=== PATIENT | male | born 1975 | race Asian ===

== ENCOUNTER 2019-08-14 02:05 | Emergency (ER) | payer OTHER ==
[~2019-08-14] VITALS: Ht 167.6 cm; Wt 70.3 kg
[2019-08-14 02:10] VITALS: Ht 167.6 cm; Wt 70.3 kg
[2019-08-14 03:47] LABS: BASOPHIL % 0.3 % (0-2); PLATELET COUNT 252 x10^3mcL (130-400); RED CELL DISTRIBUTION WIDTH 12.4 % (11.5-14.5)
[2019-08-14 04:14] LABS: CARBON DIOXIDE 28.1 mmol/L (21-32); CHLORIDE SERUM 105 mmol/L (98-107); GLUCOSE SERUM 107 mg/dL (74-106); SODIUM SERUM 143 mmol/L (136-145)
[2019-08-14 04:15] LABS: ALBUMIN 4.1 g/dL (3.4-5.0); ALKALINE PHOSPHATASE 96 U/L (46-116); ALT/SGPT 42 U/L (16-63); AMYLASE 61 U/L (25-115); AST/SGOT 8 U/L (15-37); BILIRUBIN TOTAL 0.35 mg/dL (0.20-1.00); CALCIUM 8.6 mg/dL (8.5-10.1); CREATININE SERUM 1.1 mg/dL (0.7-1.3); GFR1 > 60 mL/min; LIPASE 124 IU/L (73-393); TOTAL PROTEIN, SERUM 7.9 g/dL (6.4-8.2)
[2019-08-14 04:19] LABS: UA SPECIFIC GRAVITY 1.025 (1.005-1.035); microscopic required? YES; urine erythrocyte 3+ (NEGATIVE)
[2019-08-14 07:49] VITALS: BP 118/75
== END 2019-08-14 07:49 | disposition home or self-care (01) ==
LOC: ED 02:05
PROVIDERS: Emergency Medicine
DX: R31.29 Other microscopic hematuria (principal); R10.31 Right lower quadrant pain; R11.2 Nausea with vomiting, unspecified
CPT/HCPCS: 36415